=== PATIENT | female | born 1940 | race Caucasian/White ===

== ENCOUNTER → 2019-03-18 | Outpatient (CLI) | payer MEDICARE ==
[2019-03-18 19:43] LABS: BASOPHILS ABSOLUTE AUTO 0.04 K/mm3 (0.00-0.23); BASOPHILS PERCENT AUTO 1 % (0-2); EOSINOPHILS ABSOLUTE AUTO 0.04 K/mm3 (0.00-0.68); EOSINOPHILS PERCENT AUTO 1 % (0-6); Hemoglobin 13.2 g/dL (11.5-16.0); IMMATURE GRAN ABSOLUTE AUTO 0.02 K/mm3 (0.00-0.10); IMMATURE GRAN PERCENT AUTO 0 % (0-1); LYMPHOCYTES ABSOLUTE AUTO 2.79 K/mm3 (0.84-5.20); LYMPHOCYTES PERCENT AUTO 37 % (21-46); MONOCYTES ABSOLUTE AUTO 0.47 K/mm3 (0.16-1.47); MONOCYTES PERCENT AUTO 6 % (4-13); Mean Corpuscular HGB 29.3 pg (26.0-34.0); Mean Corpuscular HGB Conc 32.2 g/dL (31.5-36.5); Mean Corpuscular Volume 91 fL (80-100); NEUTROPHILS ABSOLUTE AUTO 4.14 K/mm3 (1.96-9.15); NEUTROPHILS PERCENT AUTO 55 % (41-73); Platelet Count 245 K/mm3 (150-400); RDW Coefficient Variation 13.9 % (11.7-14.2); RDW Standard Deviation 46.5 fL (35.1-46.3)
[2019-03-18 20:07] LABS: Alanine Aminotransfer (ALT/SGP 27 U/L (12-78); Albumin, Blood 4.2 g/dL (3.4-5.0); Alk Phos 79 U/L (50-136); Anion Gap 8 mmol/L (6-16); Aspartate Aminotrans (AST/SGOT 19 U/L (12-37); Bilirubin, Direct 0.2 mg/dL (0.0-0.3); Bilirubin, Indirect 0.5 mg/dL (0.1-0.7); Bilirubin, Total 0.7 mg/dL (0.1-1.0); Blood Urea Nitrogen 8 mg/dL (8-24); Bun/Creatinine Ratio 14.5 (12.0-20.0); CHOL/HDL RATIO 4.4; CO2, Blood 27 mmol/L (21-32); Calcium, Blood 9.7 mg/dL (8.5-10.1); Chloride, Blood 105 mmol/L (98-108); Cholesterol 218 mg/dL (50-200); Creatinine, Blood 0.55 mg/dL (0.40-1.00); Globulin, Blood 4.2 g/dL (2.2-4.0); Glomerular Filtration Rate >60 (60-); Glucose, Blood 114 mg/dL (70-99); HDL Cholesterol 49 mg/dL (>39); Low Density Lipoprotein Chol 148 mg/dL (0-110); Potassium, Blood 3.7 mmol/L (3.5-5.5); Sodium, Blood 140 mmol/L (136-145); Total Protein, Blood 8.4 g/dL (6.4-8.2); Triglycerides 103 mg/dL (30-160); Very Low Density Lipoprot Chol 20 mg/dL (6-32)
== END | disposition home or self-care (01) ==
LOC: LAB 19:34 → LAB SHORT 19:34
PROVIDERS: Registered Nurse
DX: E11.9 Type 2 diabetes mellitus without complications (principal); M54.5 Low back pain; R53.82 Chronic fatigue, unspecified
CPT/HCPCS: 80053; 80061; 82248; 83036; 84443; 85025

== ENCOUNTER → 2019-03-19 | Outpatient (CLI) | payer MEDICARE ==
[2019-03-19 12:46] LABS: Bilirubin, Urine Neg (Neg); Blood, Urine Neg (Neg); Glucose Qualitative, Urine Neg (Neg); Ketones, Urine Neg (Neg); Leukocyte Esterase, Urine Neg (Neg); Nitrite, Urine Neg (Neg); Protein, Urine Neg (Neg); Specific Gravity, Urine 1.015 (1.003-1.022); Urobilinogen, Urine NORM (Normal); pH, Urine 6.5 (5.0-8.0)
[2019-03-19 13:01] LABS: Appearance, Urine Clear (Clear); Color, Urine Yellow (P-Yellow)
== END | disposition home or self-care (01) ==
LOC: LAB SHORT 11:49 → LAB 11:49
PROVIDERS: Registered Nurse
DX: E11.9 Type 2 diabetes mellitus without complications (principal); M54.5 Low back pain; R53.82 Chronic fatigue, unspecified
CPT/HCPCS: 81003

== ENCOUNTER → 2020-07-27 | Outpatient (CLI) | payer MEDICARE | END | disposition home or self-care (01) | LOC: LAB SHORT 13:49 → PLD 13:49 | DX: C44.311 Basal cell carcinoma of skin of nose (principal) | CPT/HCPCS: 88305 ==

== ENCOUNTER → 2021-01-05 | Outpatient (CLI) | payer MEDICARE ==
[2021-01-05 09:11] LABS: BASOPHILS ABSOLUTE AUTO 0.04 K/mm3 (0.00-0.23); BASOPHILS PERCENT AUTO 1 % (0-2); EOSINOPHILS ABSOLUTE AUTO 0.06 K/mm3 (0.00-0.68); EOSINOPHILS PERCENT AUTO 1 % (0-6); Hemoglobin 14.3 g/dL (11.5-16.0); IMMATURE GRAN ABSOLUTE AUTO 0.02 K/mm3 (0.00-0.10); IMMATURE GRAN PERCENT AUTO 0 % (0-1); LYMPHOCYTES PERCENT AUTO 32 % (21-46); MONOCYTES ABSOLUTE AUTO 0.43 K/mm3 (0.16-1.47); MONOCYTES PERCENT AUTO 6 % (4-13); Mean Corpuscular HGB Conc 33.3 g/dL (31.5-36.5); Mean Corpuscular Volume 90 fL (80-100); Mean Platelet Volume 11.2 fL (9.1-12.4); NEUTROPHILS ABSOLUTE AUTO 4.31 K/mm3 (1.96-9.15); NEUTROPHILS PERCENT AUTO 60 % (41-73); Platelet Count 228 K/mm3 (150-400); RDW Standard Deviation 42.6 fL (35.1-46.3); Red Blood Cell Count 4.76 M/mm3 (3.80-5.20); White Blood Cell Count 7.16 K/mm3 (4.00-11.30)
[2021-01-05 09:34] LABS: Alanine Aminotransfer (ALT/SGP 39 U/L (12-78); Albumin, Blood 3.8 g/dL (3.4-5.0); Albumin/Globulin Ratio 0.9 (0.8-1.8); Alk Phos 73 U/L (50-136); Anion Gap 5 mmol/L (6-16); Aspartate Aminotrans (AST/SGOT 30 U/L (12-37); Bilirubin, Total 1.1 mg/dL (0.1-1.0); Blood Urea Nitrogen 8 mg/dL (8-24); Bun/Creatinine Ratio 13.7 (12.0-20.0); CO2, Blood 28 mmol/L (21-32); Calcium, Blood 9.5 mg/dL (8.5-10.1); Chloride, Blood 105 mmol/L (98-108); Creatinine, Blood 0.58 mg/dL (0.40-1.00); Globulin, Blood 4.2 g/dL (2.2-4.0); Glomerular Filtration Rate >60 (60-); Glucose, Blood 196 mg/dL (70-99); Iron Serum 119 ug/dL (50-170); Percent Saturation 33.5 % (15.0-50.0); Potassium, Blood 3.8 mmol/L (3.5-5.5); Sodium, Blood 138 mmol/L (136-145); Total Iron Binding Capacity 355 ug/dL (250-450)
== END | disposition home or self-care (01) ==
LOC: LAB SHORT 08:12 → LAB 08:12
PROVIDERS: Registered Nurse
DX: E78.5 Hyperlipidemia, unspecified (principal); E11.9 Type 2 diabetes mellitus without complications; R41.3 Other amnesia; R03.0 Elevated blood-pressure reading, without diagnosis of hypertension
CPT/HCPCS: 80053; 82607; 82746; 83036; 83540; 83550; 84443; 85025

== ENCOUNTER 2021-07-06 14:31 | Emergency (ER) | payer MEDICARE ==
[~2021-07-06] VITALS: Ht 162.6 cm; Wt 90.7 kg
[2021-07-06] MEDS ORDERED: Norco 5-325 Ta1 EACH PO (15:48)
== END 2021-07-06 15:58 | disposition home or self-care (01) ==
LOC: ER 14:31
DX: S22.42XA Multiple fractures of ribs, left side, initial encounter for closed fracture (principal); E11.9 Type 2 diabetes mellitus without complications; Z87.891 Personal history of nicotine dependence; W01.0XXA Fall on same level from slipping, tripping and stumbling without subsequent striking against object, initial encounter; Y92.002 Bathroom of unspecified non-institutional (private) residence as the place of occurrence of the external cause
CPT/HCPCS: 71101; 99283-25

== ENCOUNTER 2021-07-19 09:07 | Emergency (ER) | payer OTHER, MEDICARE ==
[~2021-07-19] VITALS: Ht 160 cm; Wt 81.7 kg
[~2021-07-19 09:07] MED LIST: Norco 5-325 Ta1 EACH PO
== END 2021-07-19 12:22 | disposition home or self-care (01) ==
LOC: ER 09:07
DX: S51.012A Laceration without foreign body of left elbow, initial encounter (principal); S80.212A Abrasion, left knee, initial encounter; Z23 Encounter for immunization; E11.9 Type 2 diabetes mellitus without complications; Z87.891 Personal history of nicotine dependence; W01.0XXA Fall on same level from slipping, tripping and stumbling without subsequent striking against object, initial encounter
CPT/HCPCS: 12002; 73080; 73564; 73700; 90471; 90714; 99284-25

== ENCOUNTER 2021-08-03 11:52 | Emergency (ER) | payer MEDICARE ==
[~2021-08-03] VITALS: Ht 162.6 cm; Wt 99.8 kg
== END 2021-08-03 13:34 | disposition home or self-care (01) ==
LOC: ER 11:52
DX: S51.012D Laceration without foreign body of left elbow, subsequent encounter (principal); E11.9 Type 2 diabetes mellitus without complications; X58.XXXA Exposure to other specified factors, initial encounter

== ENCOUNTER 2021-08-17 15:14 | Emergency (ER) | payer MEDICARE ==
[~2021-08-17] VITALS: Ht 162.6 cm; Wt 90.7 kg
== END 2021-08-17 20:32 | disposition home or self-care (01) ==
LOC: ER 15:14
DX: S51.811A Laceration without foreign body of right forearm, initial encounter (principal); S70.01XA Contusion of right hip, initial encounter; W19.XXXA Unspecified fall, initial encounter
CPT/HCPCS: 73502; 96374; 99283-25; J2405

== ENCOUNTER → 2022-01-11 | Outpatient (CLI) | payer MEDICARE ==
[2022-01-11 16:59] LABS: BASOPHILS ABSOLUTE AUTO 0.02 K/mm3 (0.00-0.23); BASOPHILS PERCENT AUTO 0 % (0-2); EOSINOPHILS ABSOLUTE AUTO 0.06 K/mm3 (0.00-0.68); EOSINOPHILS PERCENT AUTO 1 % (0-6); Hematocrit 39.4 % (33.0-51.0); Hemoglobin 13.4 g/dL (11.5-16.0); IMMATURE GRAN ABSOLUTE AUTO 0.02 K/mm3 (0.00-0.10); IMMATURE GRAN PERCENT AUTO 0 % (0-1); LYMPHOCYTES ABSOLUTE AUTO 2.23 K/mm3 (0.84-5.20); LYMPHOCYTES PERCENT AUTO 29 % (21-46); MONOCYTES ABSOLUTE AUTO 0.37 K/mm3 (0.16-1.47); MONOCYTES PERCENT AUTO 5 % (4-13); Mean Corpuscular HGB 30.5 pg (26.0-34.0); Mean Corpuscular Volume 90 fL (80-100); Mean Platelet Volume 10.7 fL (9.1-12.4); NEUTROPHILS ABSOLUTE AUTO 5.02 K/mm3 (1.96-9.15); NEUTROPHILS PERCENT AUTO 65 % (41-73); Platelet Count 268 K/mm3 (150-400); RDW Coefficient Variation 13.3 % (11.7-14.2); RDW Standard Deviation 43.4 fL (35.1-46.3); White Blood Cell Count 7.72 K/mm3 (4.00-11.30)
[2022-01-11 17:08] LABS: Alanine Aminotransfer (ALT/SGP 29 U/L (12-78); Albumin, Blood 3.6 g/dL (3.4-5.0); Albumin/Globulin Ratio 0.9 (0.8-1.8); Alk Phos 93 U/L (40-126); Anion Gap 8 mmol/L (6-16); Aspartate Aminotrans (AST/SGOT 26 U/L (12-37); Bilirubin, Total 0.9 mg/dL (0.1-1.0); Blood Urea Nitrogen 13 mg/dL (8-24); Bun/Creatinine Ratio 15.5 (12.0-20.0); CO2, Blood 27 mmol/L (21-32); Calcium, Blood 9.5 mg/dL (8.5-10.1); Chloride, Blood 101 mmol/L (98-108); Creatinine, Blood 0.84 mg/dL (0.40-1.00); Globulin, Blood 3.9 g/dL (2.2-4.0); Glomerular Filtration Rate >60 (60-); Glucose, Blood 313 mg/dL (70-99); Potassium, Blood 3.9 mmol/L (3.5-5.5); Sodium, Blood 136 mmol/L (136-145); Total Protein, Blood 7.5 g/dL (6.4-8.2)
== END | disposition home or self-care (01) ==
LOC: LAB SHORT 16:52
PROVIDERS: Chiropractor
DX: E11.9 Type 2 diabetes mellitus without complications (principal)
CPT/HCPCS: 80053; 83036; 85025

== ENCOUNTER → 2022-01-11 | Outpatient (CLI) | payer MEDICARE | END | disposition home or self-care (01) | LOC: LAB SHORT 16:50 | DX: N39.0 Urinary tract infection, site not specified (principal) | CPT/HCPCS: 87086 ==

== ENCOUNTER 2022-01-30 22:03 | Observation (INO) | payer OTHER, MEDICARE ==
[~2022-01-30] VITALS: Ht 162.6 cm; Wt 81.7 kg
[2022-01-31 02:12] LABS: BASOPHILS ABSOLUTE AUTO 0.06 K/mm3 (0.00-0.23); BASOPHILS PERCENT AUTO 1 % (0-2); EOSINOPHILS ABSOLUTE AUTO 0.08 K/mm3 (0.00-0.68); EOSINOPHILS PERCENT AUTO 1 % (0-6); Hematocrit 38.8 % (33.0-51.0); Hemoglobin 13.1 g/dL (11.5-16.0); IMMATURE GRAN ABSOLUTE AUTO 0.07 K/mm3 (0.00-0.10); IMMATURE GRAN PERCENT AUTO 1 % (0-1); LYMPHOCYTES ABSOLUTE AUTO 3.11 K/mm3 (0.84-5.20); LYMPHOCYTES PERCENT AUTO 32 % (21-46); MONOCYTES ABSOLUTE AUTO 0.54 K/mm3 (0.16-1.47); MONOCYTES PERCENT AUTO 6 % (4-13); Mean Corpuscular HGB 30.6 pg (26.0-34.0); Mean Corpuscular HGB Conc 33.8 g/dL (31.5-36.5); Mean Corpuscular Volume 91 fL (80-100); Mean Platelet Volume 11.1 fL (9.1-12.4); NEUTROPHILS ABSOLUTE AUTO 6.02 K/mm3 (1.96-9.15); NEUTROPHILS PERCENT AUTO 61 % (41-73); Platelet Count 266 K/mm3 (150-400); RDW Standard Deviation 42.7 fL (35.1-46.3); Red Blood Cell Count 4.28 M/mm3 (3.80-5.20); White Blood Cell Count 9.88 K/mm3 (4.00-11.30)
[2022-01-31 02:25] LABS: Alanine Aminotransfer (ALT/SGP 34 U/L (12-78); Albumin, Blood 3.4 g/dL (3.4-5.0); Albumin/Globulin Ratio 0.9 (0.8-1.8); Alk Phos 78 U/L (50-136); Anion Gap 4 mmol/L (6-16); Aspartate Aminotrans (AST/SGOT 16 U/L (12-37); Bilirubin, Total 0.6 mg/dL (0.1-1.0); Blood Urea Nitrogen 12 mg/dL (8-24); Bun/Creatinine Ratio 22.7 (12.0-20.0); CO2, Blood 28 mmol/L (21-32); Calcium, Blood 9.6 mg/dL (8.5-10.1); Chloride, Blood 109 mmol/L (98-108); Creatinine, Blood 0.53 mg/dL (0.40-1.00); Globulin, Blood 3.6 g/dL (2.2-4.0); Glomerular Filtration Rate >60 (60-); Glucose, Blood 207 mg/dL (70-99); Potassium, Blood 3.5 mmol/L (3.5-5.5); Sodium, Blood 141 mmol/L (136-145)
[2022-01-31] MEDS ORDERED: METFORMIN HCL500 M2 PO (12:18)
--- NOTE | 2022-01-31 14:11 | NUR ---
REPROT RECEIVED FROM ED RN. PATIENT ADMISSION STARTED IN THE ED. PATIENT TRANSPORTED VIA GURNEY TO ROOM 324 BY THIS RN. REPORT GIVEN TO BEDSIDE RN ON MEDICAL. PATIENT ARRIVED TO MEDICAL UNIT IN STABLE CONDITION.
[2022-01-31 14:31] LABS: Source, Urine Clean Catch
[2022-01-31 15:03] LABS: Appearance, Urine Clear (Clear); Bilirubin, Urine Neg (Neg); Blood, Urine Neg (Neg); Color, Urine Yellow (P-Yellow); Glucose Qualitative, Urine 3+ (Neg); Ketones, Urine 2+ (Neg); Leukocyte Esterase, Urine Neg (Neg); Nitrite, Urine Neg (Neg); Protein, Urine Neg (Neg); Urobilinogen, Urine NORM (Normal)
--- NOTE | 2022-01-31 15:38 | NUR ---
ARRIVAL TO UNIT: REPORT RECEIVED BY BETH KIRKLAND RN. PATIENT ARRIVED TO THE UNIT AROUND 14:20. PATIENT ALERT AND ORIENTED. PATIENT DENIED PAIN AT THIS TIME, BUT REPORTS THAT IT HURTS TO TAKE DEEP BREATHS. DENIES NEED FOR INTERVENTION AT THIS TIME. PATIENT HAS MULTIPLE, SMALL SKIN TEARS ON LEFT HAND. THEY ARE CLEAN AND DRY. BRACE IS ON THE PATIENT. OT AND PT IN THE ROOM TO READJUST THE BRACE AND EVALUATE THE PATIENT.
--- NOTE | 2022-01-31 18:45 | NUR ---
END OF SHIFT SUMMARY: PATIENT DENIED NEED FOR PAIN MEDICATION THROUGHOUT THE AFTERNOON AND EARLY EVENING. PATIENT UP TO THE CHAIR AND TO THE BATHROOM. PATIENT STEADY ON HER FEET. PATIENT REPORTED SHE IS "SURPRISED AT HOW WELL I AM DOING". PATIENT DENIED INCREASE IN PAIN WITH AMBULATION. PT AND OT WORKED WITH THE PATIENT AND CORRECTLY PLACED THE BRACE ON THE PATIENT. PATIENT INITIALLY EXPRESSED FEAR AT GETTING OUT OF BED. HOWEVER, THE AFTERNOON PROGRESSED SHE NO LONGER SEEMED APPREHENSIVE OF AMBULATION.
--- NOTE | 2022-02-01 03:56 | NUR ---
PATIENT SUMMARY: NO SIGNIFICANT EVENTS ON NOC. PATIENT ABLE TO AMBULATE TO BATHROOM INDEPENDTELY, SBA FOR SAFETY. LUMBAR BRACE IN PLACE. NO PHARMALOGICAL PAIN INTERVENTIONS ON NOC. WCTM.
[2022-02-01] MEDS ORDERED: Acetaminophen325 M1 PO (10:38)
[2022-02-01] MEDS ORDERED: FAMO20 PO (10:38)
[2022-02-01] MEDS ORDERED: IBUP400 PO (10:39)
[2022-02-01] MEDS ORDERED: TRAM50 PO (10:47)
--- NOTE | 2022-02-01 14:43 | NUR ---
DISCHARGE PT WAS DISCHARGED TO HOME HEALTH. SHE WAS PICKED UP BY AT FRIEND AT 1345. IV DC'D, DISCHARGE GONE OVER AND FAMILY FRIEND INFORMED OF WHERE TO MOTORCOACH DRIVER MEDICATIONS. PT ENCOURAGE TO MAKE A FOLLOW UP APPOINTMENT.
--- NOTE | 2022-02-01 15:40 | NUR ---
Received referral from nurse home child care provider (Rain Mattson) on 02/01/2022. Patient is to discharge with orders for home health and elected [facility]. Met with patient to further discuss the above. Patient is agreeable to the above. Gathered all supporting documentation for referral (face sheet, face to face, med list, H&P, discharge summary, and most recent PT assessment) and sent to [facility] for review. No further interventions required. Annette Trejo Referral Liaison
== END 2022-02-01 13:45 | disposition home health service (06) ==
LOC: ER 22:03 → ERHOLD 22:04 → MEDS 22:04 → ER 01-31 01:41 → MEDS 01-31 01:41 → ERHOLD 01-31 01:41 → MEDS 01-31 13:51 → ERHOLD 01-31 13:51 → MEDS 02-01 13:45
PROVIDERS: ADMIT Internal Medicine
DX: S32.018A Other fracture of first lumbar vertebra, initial encounter for closed fracture (principal); S32.048A Other fracture of fourth lumbar vertebra, initial encounter for closed fracture; E11.65 Type 2 diabetes mellitus with hyperglycemia; N20.0 Calculus of kidney; M16.0 Bilateral primary osteoarthritis of hip; M85.88 Other specified disorders of bone density and structure, other site; W01.0XXA Fall on same level from slipping, tripping and stumbling without subsequent striking against object, initial encounter; Y92.018 Other place in single-family (private) house as the place of occurrence of the external cause
CPT/HCPCS: 36415; 72100; 72131; 72192; 73502; 80053; 81003; 82947; 85025; 93306; 96374; 96375; 96376; 97110; 97162; 97165; 97535; 99285-25; A9270; G0378; J1650; J1885; J2270; J2405; J2550; J3010; J7030

== ENCOUNTER → 2022-06-08 | Outpatient (CLI) | payer MEDICARE ==
[~2022-06-08] MED LIST changes: +Acetaminophen325 M1 PO; +ELIQUIS5 M2 PO; +FAMO20 PO; +IBUP400 PO; +METFORMIN HCL500 M2 PO; +TRAM50 PO; +[UNRECOGNIZED DRUG - CODE] MT
[2022-06-08 15:49] LABS: BASOPHILS ABSOLUTE AUTO 0.03 K/mm3 (0.00-0.23); BASOPHILS PERCENT AUTO 0 % (0-2); EOSINOPHILS ABSOLUTE AUTO 0.04 K/mm3 (0.00-0.68); EOSINOPHILS PERCENT AUTO 1 % (0-6); Hematocrit 41.4 % (33.0-51.0); Hemoglobin 13.5 g/dL (11.5-16.0); IMMATURE GRAN ABSOLUTE AUTO 0.04 K/mm3 (0.00-0.10); IMMATURE GRAN PERCENT AUTO 1 % (0-1); LYMPHOCYTES ABSOLUTE AUTO 1.37 K/mm3 (0.84-5.20); LYMPHOCYTES PERCENT AUTO 17 % (21-46); MONOCYTES ABSOLUTE AUTO 0.54 K/mm3 (0.16-1.47); MONOCYTES PERCENT AUTO 7 % (4-13); Mean Corpuscular HGB 29.2 pg (26.0-34.0); Mean Corpuscular HGB Conc 32.6 g/dL (31.5-36.5); Mean Corpuscular Volume 89 fL (80-100); Mean Platelet Volume 11.6 fL (9.1-12.4); NEUTROPHILS PERCENT AUTO 75 % (41-73); Platelet Count 242 K/mm3 (150-400); RDW Coefficient Variation 13.2 % (11.7-14.2); RDW Standard Deviation 42.9 fL (35.1-46.3); Red Blood Cell Count 4.63 M/mm3 (3.80-5.20); White Blood Cell Count 8.02 K/mm3 (4.00-11.30)
[2022-06-08 16:13] LABS: Magnesium, Blood 2.3 mg/dL (1.6-2.4)
[2022-06-08 16:15] LABS: Albumin, Blood 3.7 g/dL (3.4-5.0); Albumin/Globulin Ratio 0.9 (0.8-1.8); Bilirubin, Total 1.8 mg/dL (0.1-1.0); Bun/Creatinine Ratio 18.2 (12.0-20.0); Creatinine, Blood 0.61 mg/dL (0.40-1.00); Globulin, Blood 4.2 g/dL (2.2-4.0); Potassium, Blood 3.8 mmol/L (3.5-5.5); Thyroid Stimulating Hormone 1.78 uIU/mL (0.360-4.800); Total Protein, Blood 7.9 g/dL (6.4-8.2)
== END | disposition home or self-care (01) ==
LOC: LAB SHORT 15:00 → LAB 15:00
PROVIDERS: Nurse Practitioner Family
DX: R42 Dizziness and giddiness (principal); R53.83 Other fatigue; R30.0 Dysuria
CPT/HCPCS: 80053; 83735; 84443; 85025; 87086; 87147

== ENCOUNTER 2022-06-19 10:26 | Inpatient (IN) | payer MEDICARE ==
[~2022-06-19] VITALS: Ht 162.6 cm; Wt 72.9 kg
[2022-06-19] MEDS ORDERED: ELIQUIS5 M3 PO (10:41)
[2022-06-19 11:02] LABS: BASOPHILS ABSOLUTE AUTO 0.01 K/mm3 (0.00-0.23); BASOPHILS PERCENT AUTO 0 % (0-2); EOSINOPHILS ABSOLUTE AUTO 0.01 K/mm3 (0.00-0.68); EOSINOPHILS PERCENT AUTO 0 % (0-6); Hematocrit 24.3 % (33.0-51.0); Hemoglobin 7.9 g/dL (11.5-16.0); IMMATURE GRAN ABSOLUTE AUTO 0.11 K/mm3 (0.00-0.10); IMMATURE GRAN PERCENT AUTO 1 % (0-1); LYMPHOCYTES ABSOLUTE AUTO 0.97 K/mm3 (0.84-5.20); LYMPHOCYTES PERCENT AUTO 12 % (21-46); MONOCYTES ABSOLUTE AUTO 0.47 K/mm3 (0.16-1.47); MONOCYTES PERCENT AUTO 6 % (4-13); Mean Corpuscular HGB 29.8 pg (26.0-34.0); Mean Corpuscular HGB Conc 32.5 g/dL (31.5-36.5); Mean Corpuscular Volume 92 fL (80-100); NEUTROPHILS ABSOLUTE AUTO 6.57 K/mm3 (1.96-9.15); NEUTROPHILS PERCENT AUTO 81 % (41-73); NRBC ABSOLUTE 0.05 K/mm3 (0.00-0.02); NRBC Auto 0.6 /100 WBC (0.0-0.2); RDW Coefficient Variation 14.7 % (11.7-14.2); RDW Standard Deviation 46.9 fL (35.1-46.3); Red Blood Cell Count 2.65 M/mm3 (3.80-5.20); White Blood Cell Count 8.14 K/mm3 (4.00-11.30)
[2022-06-19 11:11] LABS: Source, Urine Straight Cath
[2022-06-19 11:19] LABS: Albumin/Globulin Ratio 0.9 (0.8-1.8); Bilirubin, Total 4.2 mg/dL (0.1-1.0); Bun/Creatinine Ratio 42.8 (12.0-20.0); Calcium, Blood 9.4 mg/dL (8.5-10.1); Creatinine, Blood 0.93 mg/dL (0.40-1.00); Globulin, Blood 3.5 g/dL (2.2-4.0); Magnesium, Blood 2.6 mg/dL (1.6-2.4); Potassium, Blood 4.2 mmol/L (3.5-5.5); Total Protein, Blood 6.5 g/dL (6.4-8.2)
[2022-06-19 11:23] LABS: Appearance, Urine Hazy (Clear); Blood, Urine 5+ (Neg); Color, Urine Amber (P-Yellow); Glucose Qualitative, Urine Neg (Neg); Ketones, Urine 2+ (Neg); Leukocyte Esterase, Urine 1+ (Neg); Nitrite, Urine Neg (Neg); Protein, Urine 2+ (Neg); Urobilinogen, Urine 3+ (Normal)
[2022-06-19 11:39] LABS: Influenza A, PCR NEGATIVE (NEGATIVE); Influenza B, PCR NEGATIVE (NEGATIVE); Resp Syncytial Virus, PCR NEGATIVE (NEGATIVE); SARS-Cov-2 (COVID-19) PCR, MMC NEGATIVE (NEGATIVE)
[2022-06-19 11:39] LABS: Bilirubin, Urine 2+ (Neg)
[2022-06-19 11:40] LABS: Amorphous Light (0-Heavy); Bacteria Many /hpf; Red Blood Cells, Urine 50-100 /hpf (0-2); Squamous Epithelial Cells Few /hpf (Few)
[2022-06-19 12:02] LABS: Platelet Count 19 K/mm3 (150-400)
[2022-06-19 13:00] LABS: Bilirubin, Direct 2.2 mg/dL (0.0-0.3)
[2022-06-19 13:44] LABS: D-Dimer, Quantitative >35.20 mg/L FEU (0.00-0.52)
[2022-06-19 13:47] LABS: Prothrombin Time Results 54.1 Sec (9.7-11.5)
[2022-06-19 13:49] LABS: International Normalized Ratio 5.78
[2022-06-19 13:50] LABS: Fibrinogen <50 mg/dL (170-430)
--- NOTE | 2022-06-19 18:30 | NUR ---
Met with pt in ED, her was not available in person or via phone when I attempted to reach him via number on face sheet. The pt's skin is extremely pale. She appears sleepy. She states she has been so tired for weeks, and her has been "yelling at" her she states, worried that she is sleeping so much she will lose her strength and be stuck in bed. She states she is "already pretty much stuck in bed due to weakness". She asked me, "Am I dying"? I responded, "You could be". She thanks me for telling her. Pt is being transferred to icu. Will see pt again tomorrow.
--- NOTE | 2022-06-19 19:00 | NUR ---
ASSUMED CARE PT LAYING IN BED WITH EYES CLOSED. AWAKENS EASILY TO VERBAL STIMULI. A/O TO SELF ONLY, FOLLOWS DIRECTIONS. NS INFUSING AT 100ML/HR. PT COMPLAINS OF BACK PAIN, UNABLE TO GIVE PAIN SCALE NUMBER. PERIODICALLY YELLING OUT AND TRYING TO CLIMB OUT OF BED. BED ALARM IN PLACE. PT VERY PALE AND COOL TO THE TOUCH.
--- NOTE | 2022-06-20 06:05 | NUR ---
CRITICAL LABS/CALL TO MD ALL CRITICAL LABS AND PT'S CURRENT CONDITION DISCUSSED WITH MD. SINCE PT IS HEMODYNAMICALLY STABLE AND HAS NO S/S OF BLEEDING, PLAN IS TO DISCUSS STATUS WITH AM HOSPITALIST AND DR. Felipe ESCOBAR.
[2022-06-20 06:22] LABS: Albumin, Blood 2.6 g/dL (3.4-5.0); Albumin/Globulin Ratio 0.8 (0.8-1.8); Bilirubin, Total 5.2 mg/dL (0.1-1.0); Bun/Creatinine Ratio 36.6 (12.0-20.0); Calcium, Blood 8.4 mg/dL (8.5-10.1); Creatinine, Blood 1.53 mg/dL (0.40-1.00); Globulin, Blood 3.3 g/dL (2.2-4.0); Potassium, Blood 4.6 mmol/L (3.5-5.5); Total Protein, Blood 5.9 g/dL (6.4-8.2)
--- NOTE | 2022-06-20 07:19 | NUR ---
SHIFT SUMMARY PT A/O TO SELF ONLY. PERIODS OF CALLING OUT/ TRYING TO GET OUT OF BED. PT C/O PAIN IN BACK AND ABDOMEN. MEDICATED THREE TIMES WITH FENTANYAL. PT ALSO C/O NAUSEA AND ZOFRAN WAS GIVEN X2. MINIMAL VAGINAL BLEEDING AT BEGINING OF SHIFT. NO OTHER S/S OF BLEEDING NOTED. BED ALARM IN PLACE.
--- NOTE | 2022-06-20 08:17 | NUR ---
ASSUMED CARE BEDSIDE REPORT FROM JAYY/JASPER RN AT 0700. PT LAYING IN BED. MOANING. DIFFICULT TO REDIRECT. PT OCCASIONALLY FOLLOWS SIMPLE DIRECTIONS. ORIENTED TO SELF ONLY. CPOT 8, MEDICATED c FENTANYL. RESTING AT THIS TIME. LUNGS CLEAR. ST ON MONITOR, RATE 100-110'S. BP STABLE. PT COOL, PALE. ABD DISTENDED, TENDER TO LIGHT PALPATION. BT X 4. ATTENDS IN PLACE. IVF AT 100 ML/HR VIA PG TO SONYE, DRESSING C/D/I. PT DNR. WILL CONTINUE TO MONITOR.
[2022-06-20 10:12] LABS: Prothrombin Time Results 67.3 Sec (9.7-11.5)
[2022-06-20 10:13] LABS: D-Dimer, Quantitative >35.20 mg/L FEU (0.00-0.52); Fibrinogen <50 mg/dL (170-430)
[2022-06-20 10:15] LABS: Mean Corpuscular HGB 30.4 pg (26.0-34.0); Mean Corpuscular HGB Conc 32.4 g/dL (31.5-36.5); Mean Corpuscular Volume 94 fL (80-100); NRBC ABSOLUTE 0.18 K/mm3 (0.00-0.02); NRBC Auto 1.7 /100 WBC (0.0-0.2); RDW Coefficient Variation 14.9 % (11.7-14.2); RDW Standard Deviation 47.7 fL (35.1-46.3); Red Blood Cell Count 1.81 M/mm3 (3.80-5.20); White Blood Cell Count 10.85 K/mm3 (4.00-11.30)
[2022-06-20 10:20] LABS: Platelet Count 37 K/mm3 (150-400)
[2022-06-20 10:22] LABS: BAND PERCENT MAN 5 % (0-8); BASOPHILS PERCENT MAN 1 % (0-2); EOSINOPHILS PERCENT MAN 0 % (0-6); LYMPHOCYTES ABSOLUTE MAN 1.51 K/mm3 (0.84-5.20); LYMPHOCYTES PERCENT MAN 14 % (21-46); MONOCYTES ABSOLUTE MAN 0.54 K/mm3 (0.16-1.47); MONOCYTES PERCENT MAN 5 % (4-13); NEUTROPHILS ABSOLUTE MAN 8.35 K/mm3 (1.96-9.15); PROMYELOCYTE ABSOLUTE MAN 0.32 K/mm3 (0.00-0.00); PROMYELOCYTE PERCENT MAN 3 % (0-0); SEG NEUTROPHILS PERCENT MAN 72 % (41-73)
[2022-06-20 10:23] LABS: Hemoglobin 5.5 g/dL (11.5-16.0)
--- NOTE | 2022-06-20 10:35 | NUR ---
Pt is somnolent at this time. Resp even, unlabored. She does occasionally shake her head "yes" or "no" to simple questions. is at bedside. Pt has been downgraded from ICU to medical floor status. Comfort medications ordered. Pt's granddaughter is en route from [place]. Pt becomes extremely anxious intermittently; flailing and swinging her legs out of bed. She is no longer opening her eyes or speaking,even with terminal agitation. Palliative Care will continue visits as needed with pt and/or family.
--- NOTE | 2022-06-20 11:01 | NUR ---
COMFORT CARE AND CAREGIVER AT BEDSIDE. MET natasha SAENZ AND JANELL FROM PALLIATIVE. DECISION MADE TO CHANGE TO COMFORT CARE. GRANDDAUGHTER STARLIGHT ON WAY FROM [place].
--- NOTE | 2022-06-20 13:39 | NUR ---
Spiritual care visit conducted. I met with pt's spouse, Juan in the ICU waiting earlier this morning. He talks about his confusion, frustration and how overwhelmed he is. He admits to causing much of the family unit complications and now he feels as if he has no one to lean on. He talks about being anxious about all that he is facing with life decisions and wonders who he can trust. He also shares about his belief in God and that currently he is a little anry at him for not fixing his and the of his son from cancer. I listen empathically, normalize his experience, assist in sorting out some of the next steps, hear confession and provide gentle breastfeeding peer counselor and prayer. Juan responds well and shows signs of having increased peace. I also then met with their beloved home day care provider, Eyad, and listened as he cried and worked through his emotions as he took in the reality of the situation. I provide therapeutic listening and prayer, which appeared to bring some comfort to him.
--- NOTE | 2022-06-20 14:20 | NUR ---
Spiritual care visit conducted. TOD final prayer and grief support to family provided. Family shows signs of being comforted.
--- NOTE | 2022-06-20 14:47 | NUR ---
TOD 1350. SHOES, RINGS, BOOK SENT HOME c GRANDDAUGHTER, STARLIGHT. AWAITING TRANSPORT TO [facility] FOR INCURABLES.
== END 2022-06-20 13:50 | DRG 813 ==
LOC: ER 10:26 → ICUE 15:15 → ICUW 15:15 → ICUE 17:27
PROVIDERS: Nurse Practitioner Acute Care; Student in an Organized Health Care Education/Training Program; ADMIT Internal Medicine
PROC: 30233N1 Transfusion of Nonautologous Red Blood Cells into Peripheral Vein, Percutaneous Approach (ICD-10-PCS; principal; 2022-06-19)
DX: D65 Disseminated intravascular coagulation [defibrination syndrome] (principal); C25.9 Malignant neoplasm of pancreas, unspecified; C78.7 Secondary malignant neoplasm of liver and intrahepatic bile duct; E87.1 Hypo-osmolality and hyponatremia; C77.2 Secondary and unspecified malignant neoplasm of intra-abdominal lymph nodes; C77.1 Secondary and unspecified malignant neoplasm of intrathoracic lymph nodes; Z20.822 Contact with and (suspected) exposure to COVID-19; D64.9 Anemia, unspecified; E66.9 Obesity, unspecified; D73.5 Infarction of spleen; Z98.890 Other specified postprocedural states; Z79.899 Other long term (current) drug therapy; Z66 Do not resuscitate; E86.1 Hypovolemia; R31.29 Other microscopic hematuria
CPT/HCPCS: 0241U; 36430; 76830; 76856; 80053; 81001; 82248; 83615; 83735; 85007; 85025; 85027; 85379; 85384; 85610; 85730; 86850; 86880; 86900; 86901; 87086; 93005; 93010; 96360; 96361; 99285-25; A9270; C1751; J1170; J1630; J2060; J2405; J3010; J7030; P9012